=== PATIENT | male | born 1970 | race African-American/Black ===

== ENCOUNTER 2017-09-23 18:48 | Emergency (ER) | payer OTHER, BC ==
[2017-09-23 18:57] VITALS: BP 125/76; BMI 28.8
[2017-09-23] MEDS ORDERED: TORADOL 60 MG VIAL ONE (19:01)
[2017-09-23] MEDS ORDERED: TORADOL 60 MG VIAL IM ONE (19:01)
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
== END 2017-09-23 20:14 | disposition home or self-care (01) ==
LOC: ER 18:48
DX: S00.83XA Contusion of other part of head, initial encounter (principal); G44.311 Acute post-traumatic headache, intractable; G31.9 Degenerative disease of nervous system, unspecified; X58.XXXA Exposure to other specified factors, initial encounter
CPT/HCPCS: 70450; 70486; 96372; 99283; J1885

== ENCOUNTER 2019-07-27 08:01 | Inpatient (IN) ==
[2019-07-27 08:18] VITALS: BMI 30.1
[2019-07-27] MEDS ORDERED: ZOFRAN INJ 4 MG VIAL IVP ONE ×2 (08:20→15:54)
[2019-07-27] MEDS ORDERED: NS 1000 ML 1,000 ML IV ONE (08:20)
[2019-07-27] MEDS ORDERED: NS 1000 ML 1,000 ML ONE ×2 (08:21→16:19)
[2019-07-27] MEDS ORDERED: ZOFRAN INJ 4 MG VIAL ONE ×2 (08:21→16:02)
[2019-07-27 08:45] LABS: BASOPHILS % (AUTO) 0.6 % (0.2-1.0); EOSINOPHILS % (AUTO) 0.1 % (0.9-2.9); HEMATOCRIT 39.6 % (42.0-54.0); HEMOGLOBIN 12.7 g/dL (13.5-18.0); LYMPHOCYTES # (AUTO) 1.3 X10^3/uL (1.3-2.9); LYMPHOCYTES % (AUTO) 14.7 % (21.0-51.0); MEAN CORPUSCULAR VOLUME 84.2 fL (80.0-100.0); MEAN PLATELET VOLUME 8.3 fL (7.4-11.0); MONOCYTES # (AUTO) 0.6 x10^3/uL (0.3-0.8); MONOCYTES % (AUTO) 6.5 % (0.0-13.0); NEUTROPHILS # (AUTO) 6.7 x10^3/uL (2.2-4.8); NEUTROPHILS % (AUTO) 78.1 % (42.0-75.0); PLATELET COUNT 216 X10^3/uL (150.0-450.0); RED CELL DISTRIBUTION WIDTH 15.7 % (11.6-16.5); WHITE BLOOD COUNT 8.5 X10^3/uL (3.6-10.0)
[2019-07-27] MEDS ORDERED: TORADOL 30 MG VIAL ONE (08:47)
[2019-07-27] MEDS ORDERED: PEPCID 20 MG IV PREMIX* 20 MG/50 ML BAG IV ONE ×2 (08:47)
[2019-07-27] MEDS ORDERED: TORADOL 30 MG VIAL IVP ONE (08:47)
[2019-07-27 08:54] LABS: ALANINE AMINOTRANSFERASE 51 Units/L (12-78); ALBUMIN 4.5 g/dL (3.4-5.0); ALKALINE PHOSPHATASE 84 Units/L (46-116); AMYLASE 365 Units/L (25-115); ASPARTATE AMINO TRANSFERASE 44 Units/L (15-37); BLOOD UREA NITROGEN 12 mg/dL (7-18); CALCIUM 9.4 mg/dL (8.5-10.1); CARBON DIOXIDE 24.6 mmol/L (21-32); CHLORIDE 94 mmol/L (98-107); COR NA(FOR HYPERGLY) 137 mmol/L (136-145); CREATININE 1.45 mg/dL (0.70-1.30); SODIUM 133 mmol/L (136-145); TOTAL PROTEIN 8.5 g/dL (6.4-8.2); eGFR NON BLACK RACES 55 (>60)
[2019-07-27 09:04] LABS: LIPASE 5196 Units/L (73-393)
[2019-07-27] MEDS ORDERED: NORMODYNE TAB 100 MG PO ONE (09:19)
--- NOTE | 2019-07-27 09:25 | DR.N/VMALE ---
HPI Time Seen Time Seen by Provider: 07/27/19 09:18 Primary Care Physician Primary Care Physician: DR. CHESTER HPI Comment HPI Comment: PATIENT IS 49YR OLD MALE IN ER WITH A LUQ ABDOMINAL PAIN , NAUSEA AND VOMITING TIMES ONE. PAIN IS SHARP 8/10 RADIATING TO THE BACK. PAIN IS WORSE TODAY AND SIMILAR TO PAIN PATIENT HAVE WITTH PACREATITIS. NO FEVER OR DYSURIA. Complaints Chief Complaint Doctors Comments: ABDOMINAL PAIN TIMES ONE WITH NAUSEA AND VOMITING. Chief Complaint:: PT C/O LEFT UPPER QUAD PAIN , AND NV SINCE YESTERDAY PT STATES " I FEELS LIKE IT DID WHEN IN HAD PANCREATITIS " ..BR Self Treatment fo Chief Complaint: PT DENIES ANY RECENT TRAVELS OR CONTACT WITH ANYONE WITH COVID-19, PT C/O SOB, LUNGS CLEAR PT STATES " I THINK THE SOB IS FRO M MY BELLY PAIN ",BR PT STATES " I LIVE ALONE AND I HAVE BEEN SELF QUARATINE".BR Reviewed Nurses Notes Reviewed: Yes Source History Provided: Patient and EMS Mode of Arrival Mode of Arrival: Stretcher Timing Onset of Chief Complaint: 07/26/19 Context Onset: Spontaneous Recent: None Quality Quality: Food Particles Associated Signs and Symptoms Abdominal Pain Quality: Sharp Abdominal Pain Location: LUQ Symptoms: Abdominal Pain Other History Other History: HISTORY PANCREATITIS. PMH PMH Past Medical History: Yes Past Medical History: Diabetes and Hypertension Past Surgical History: No Surgical History: No History Family History History of Family Medical Conditions: Yes Family Medical History: Hypertension Social History Does patient currently use any type of tobacco product: No Have you used tobacco products in the last 12 months: No Type of Tobacco Use: None Does any household member use tobacco: No Alcohol Use: Heavy Do you use any recreational Drugs:: No Lives With: Family Lives Where: Home Travel Risk Coronavirus risk:travel/contact w/high risk person: No Has patient experienced Coronavirus symptoms: No Infectious screening In the last 2 months have you had wt loss of >10#?: NO Have you had fever, night sweats or hemotysis?: No Have you traveled outside the country in the last 6 months?: No Isolation: Standard ROS Review of Systems Constitutional: See HPI, Weakness and Fatigue Eyes: No Symptoms Reported and See HPI ENTM: No Symptoms Reported and See HPI Respiratoy: See HPI and Short of Breath; negative Moist Cough and Wheezing Cardiovascular: No Symptoms Reported and See HPI Gastrointestinal/Abdominal: See HPI, Abdominal Pain, Nausea and Vomiting Genitourinary: No Symptoms Reported and See HPI; negative Dysuria, Frequency and Hematuria Neurological: See HPI and Weakness; negative Headache and Dizziness Musculoskeletal: No Symptoms Reported and See HPI; negative Back Pain Integumentary: No Symptoms Reported and See HPI; negative Change in Color, Rash and Juandice Hematologic/Lymphatic: No Symptoms Reported and See HPI Endocrine: No Symptoms Reported and See HPI Psychiatric: No Symptoms Reported and See HPI All Other Systems: Reviewed and Negative PE Vital Signs Vitals: Temperature 96.9 F Pulse Rate 120 Respiratory Rate 20 Blood Pressure [Left Arm] 182/114 Blood Pressure 150/100 O2 Sat by Pulse Oximetry 100 General Limitations: No Limitations General Appearance: Alert and In No Apparent Distress Head Head Exam: Normal Inspection Eyes Eye exam: Normal Appearance, PERRL and EOMI; negative Scleral Icterus and Co njunctival Injection ENT ENT Exam: Normal Exam, Normal Oropharynx, Normal External Ear Exam and TM's Normal Bilaterally Neck Neck Exam: Normal Inspection and Trachea Midline; negative Tenderness and Lymphadenopathy Chest Chest Inspection: Normal Inspection Respiratory Respiratory Exam: Normal Lung Sounds Bilat; negative Accessory Muscle Use, Chest Wall Tenderness and Respiratory Distress Respiratory Exam: Bilateral: Clear to Auscultation Cardiovascular Cardiovascular Exam: Regular Rate, Normal Rhythm and Normal Heart Sounds; negative Systolic Murmur and Diastolic Murmur Abdominal Exam Abdominal Exam: Normal Inspection, Normal Bowel Sounds, Soft and Tenderness Abdominal Tenderness: LLQ and Moderate Rectal Rectal Exam: Deferred Exam: Male: Deferred Extremities Extremities Exam: Normal Inspection and Normal Capillary Refill; negative Tenderness, Edema and Calf Tenderness Back Back Exam: Normal Inspection; negative (R) CVA Tenderness and (L) CVA Tenderness Neurologic Neurological Exam: Alert, Oriented X3 and CN II-XII Intact; negative Motor Sensory Deficit Psychiatric Psychiatric Exam: Normal Affect and Normal Mood Skin Skin Exam: Warm, Dry, Intact and Normal Color MDM Differential Diagnosis Differential Diagnosis: Considerations may Include:: Bowel Obstruction, Cholecystitis, Gastritis, Gastroenteritis, Inflammatory BD, Pancreatitis, PUD, Urinary Tract Infection and Urolithiasis COURSE Treatment Treatment: SEE ORDERS Education/Counseling Education/Counseling: Patient Educated On: Diagnosis and Needs for Follow Up ROR Labs Reviewed Laboratory Results Reviewed?: Yes Result Diagrams: 07/29/19 05:36 07/29/19 05:36 Laboratory: WBC 8.5 X10^3/uL (3.6-10.0) 07/27/19 08:36 RBC 4.70 X10^6/uL (4.7-6.0) 07/27/19 08:36 Hgb 12.7 g/dL (13.5-18.0) L 07/27/19 08:36 Hct 39.6 % (42.0-54.0) L 07/27/19 08:36 MCV 84.2 fL (80.0-100.0) 07/27/19 08:36 MCH 27.0 pg (27.0-34.0) 07/27/19 08:36 MCHC 32.0 g/dL (33.0-35.0) L 07/27/19 08:36 RDW 15.7 % (11.6-16.5) 07/27/19 08:36 Plt Count 216 X10^3/uL (150.0-450.0) 07/27/19 08:36 MPV 8.3 fL (7.4-11.0) 07/27/19 08:36 Neut % (Auto) 78.1 % (42.0-75.0) H 07/27/19 08:36 Lymph % (Auto) 14.7 % (21.0-51.0) L 07/27/19 08:36 Monona % (Auto) 6.5 % (0.0-13.0) 07/27/19 08:36 Eos % (Auto) 0.1 % (0.9-2.9) L 07/27/19 08:36 Baso % (Auto) 0.6 % (0.2-1.0) 07/27/19 08:36 Neut # (Auto) 6.7 x10^3/uL (2.2-4.8) H 07/27/19 08:36 Lymph # (Auto) 1.3 X10^3/uL (1.3-2.9) 07/27/19 08:36 Monona # (Auto) 0.6 x10^3/uL (0.3-0.8) 07/27/19 08:36 Eos # (Auto) 0.0 x10^3/uL (0.0-0.2) 07/27/19 08:36 Baso # (Auto) 0.0 X10^3/uL (0.0-0.1) 07/27/19 08:36 Absolute Nucleated RBC 0.1 /100WBC 07/27/19 08:36 Sodium 133 mmol/L (136-145) L 07/27/19 08:36 Corrected Sodium 137 mmol/L (136-145) 07/27/19 08:36 Potassium 4.0 mmol/L (3.5-5.1) 07/27/19 08:36 Chloride 94 mmol/L (98-107) L 07/27/19 08:36 Carbon Dioxide 24.6 mmol/L (21-32) 07/27/19 08:36 BUN 12 mg/dL (7-18) 07/27/19 08:36 Creatinine 1.45 mg/dL (0.70-1.30) H 07/27/19 08:36 Est GFR (MDRD) Af Amer > 60 (>60) 07/27/19 08:36 Est GFR (MDRD) Non-Af 55 (>60) L 07/27/19 08:36 Glucose 248 mg/dL (65-99) H 07/27/19 08:36 Calcium 9.4 mg/dL (8.5-10.1) 07/27/19 08:36 Corrected Calcium TNP 07/27/19 08:36 Total Bilirubin 0.50 mg/dL (0.2-1.0) 07/27/19 08:36 AST 44 Units/L (15-37) H 07/27/19 08:36 ALT 51 Units/L (12-78) 07/27/19 08:36 Alkaline Phosphatase 84 Units/L (46-116) 07/27/19 08:36 Total Protein 8.5 g/dL (6.4-8.2) H 07/27/19 08:36 Albumin 4.5 g/dL (3.4-5.0) 07/27/19 08:36 Globulin 4.0 g/dL (2.5-4.5) 07/27/19 08:36 Albumin/Globulin Ratio 1.1 Ratio (1.1-2.1) 07/27/19 08:36 Amylase 365 Units/L (25-115) H 07/27/19 08:36 Lipase 5196 Units/L (73-393) H 07/27/19 08:36 XRAY XRAY Interpreted by: Radiologist (REPORT NOTED AND DISCUSSED WITH PATIENT.) Opioid Opioid Risk Tool Age (Nguyễn box if 16-45): No History of Preadolescent Sexual Abuse: No Total: 0 Total Score Risk Category: Low Risk Copyright: Rangel predicting aberrant behaviors Instructions Instructions: Acute Pancreatitis, [id number] Type 2 Diabetes Mellitus, Self Care, Adult, Chzj-[id number] Hypertension, [id number] Acute Pancreatitis Forms: Excuse From Work Precautions for COVID19 Patient Portal Social Distancing
--- NOTE | 2019-07-27 10:31 | CT ---
ABDOMEN/PELVIS WITH CONIndication: Upper abdominal pains, elevated pancreatic enzymesTechnique: Helical CT images of the abdomen and pelvis were obtained with IV contrast. Reformatted images in the coronal and sagittal planes were also generated for review.Comparison: NoneFindings: Lung bases are clear. No acute osseous abnormality.The liver, nondistended gallbladder, spleen, adrenals and kidneys are unremarkable. The pancreas is diffusely edematous with surrounding inflammatory stranding and small free fluid, compatible with acute pancreatitis. Calcifications in the region of the pancreatic head, compatible with sequela of chronic pancreatitis also noted. No current evidence of pancreatic necrosis or drainable peripancreatic fluid collection is identified. The main portal vein, splenic vein and SMV remain patent.There is moderate, likely reactive thickening of the duodenal C loop. The remainder of the GI tract is without obstruction or inflammation. The appendix is normal. The abdominal aorta is minimally calcified without aneurysm. Small fat containing umbilical hernia noted. The partially collapsed urinary bladder is grossly normal. Prostate is not enlarged. No free air or bulky lymphadenopathy is identified.Impression:Imaging findings compatible with uncomplicated acute interstitial pancreatitis as above.Electronically signed by: ROBE BUSH (Jul 27, 2019 10:29:27)
[2019-07-27] MEDS ORDERED: NS 500 ML IV 1,000 ML IV ONE (15:54)
[2019-07-27] MEDS ORDERED: ZOFRAN INJ 4 MG VIAL IVP PRN (16:04)
[2019-07-27] MEDS ORDERED: PROTONIX INJ 40 MG VIAL ONE (16:19)
[2019-07-27] MEDS ORDERED: DEMEROL INJ ONE (16:20)
[2019-07-27] MEDS: DEMEROL INJ IVP PRN ×2 (16:27→22:45)
[2019-07-27] MEDS: PROTONIX INJ 40 MG VIAL IVP SCH ×2 (16:28→20:50)
[2019-07-27] MEDS ORDERED: PROVENTIL NEB TX 0.083% 2.5MG/ 3ML NEB PRN (17:26)
[2019-07-27] MEDS ORDERED: ZESTRIL TAB 20 MG ONE (18:44)
[2019-07-27] MEDS: NORVASC TAB 10 MG PO SCH (18:49)
[2019-07-27] MEDS: ZESTRIL TAB 20 MG PO SCH (18:50)
[2019-07-27 18:52] LABS: BILIRUBIN,URINE NEGATIVE (NEGATIVE); BLOOD/HEMOGLOBIN,URINE 3+ (NEGATIVE); GLUCOSE, URINE NEGATIVE (NEGATIVE); KETONES,URINE 3+ (NEGATIVE); LEUKOCYTE ESTERASE ,URINE 1+ (NEGATIVE); NITRITES,URINE NEGATIVE (NEGATIVE); PROTEIN,URINE 3+ (NEGATIVE); UROBILINOGEN,URINE NORMAL (NORMAL)
[2019-07-27] MEDS: NS 1000 ML 1,000 ML IV SCH (19:00)
[2019-07-27 19:33] LABS: APPEARANCE,URINE CLEAR (CLEAR); BACTERIA,URINE NEGATIVE /HPF (NEGATIVE); COLOR,URINE DARK YELLOW (YELLOW); SQUAMOUS EPITHELIAL CELL,UR FEW /HPF (NEGATIVE)
[2019-07-27] MEDS ORDERED: LOPRESSOR TAB 50 MG ONE (20:28)
[2019-07-27] MEDS: AMBIEN PO PRN (20:49)
[2019-07-27] MEDS: LOPRESSOR TAB 50 MG PO SCH (20:52)
[2019-07-27] MEDS: HumuLIN R SUBCUT PRN (20:52)
[2019-07-28] MEDS: NS 1000 ML 1,000 ML IV SCH ×4 (04:23→23:55)
[2019-07-28 05:45] LABS: BASOPHILS % (AUTO) 0.3 % (0.2-1.0); EOSINOPHILS % (AUTO) 0.3 % (0.9-2.9); HEMATOCRIT 36.8 % (42.0-54.0); HEMOGLOBIN 11.9 g/dL (13.5-18.0); LYMPHOCYTES # (AUTO) 0.8 X10^3/uL (1.3-2.9); LYMPHOCYTES % (AUTO) 7.7 % (21.0-51.0); MEAN CORPUSCULAR HEMOGLOBIN 27.4 pg (27.0-34.0); MEAN CORPUSCULAR HGB CONC 32.4 g/dL (33.0-35.0); MEAN CORPUSCULAR VOLUME 84.6 fL (80.0-100.0); MEAN PLATELET VOLUME 8.4 fL (7.4-11.0); MONOCYTES # (AUTO) 1.1 x10^3/uL (0.3-0.8); MONOCYTES % (AUTO) 10.4 % (0.0-13.0); NEUTROPHILS # (AUTO) 8.9 x10^3/uL (2.2-4.8); NEUTROPHILS % (AUTO) 81.3 % (42.0-75.0); PLATELET COUNT 158 X10^3/uL (150.0-450.0); RED BLOOD COUNT 4.35 X10^6/uL (4.7-6.0); RED CELL DISTRIBUTION WIDTH 16.1 % (11.6-16.5)
[2019-07-28 06:04] LABS: ALANINE AMINOTRANSFERASE 34 Units/L (12-78); ALBUMIN 3.8 g/dL (3.4-5.0); ALKALINE PHOSPHATASE 64 Units/L (46-116); AMYLASE 498 Units/L (25-115); ASPARTATE AMINO TRANSFERASE 28 Units/L (15-37); BLOOD UREA NITROGEN 10 mg/dL (7-18); CALCIUM 8.3 mg/dL (8.5-10.1); CARBON DIOXIDE 27.5 mmol/L (21-32); CHLORIDE 100 mmol/L (98-107); COR NA(FOR HYPERGLY) 140 mmol/L (136-145); CREATININE 1.07 mg/dL (0.70-1.30); SODIUM 138 mmol/L (136-145); TOTAL PROTEIN 7.4 g/dL (6.4-8.2); eGFR NON BLACK RACES > 60 (>60)
[2019-07-28] MEDS: HumuLIN R SUBCUT PRN ×4 (06:13→21:06)
[2019-07-28] MEDS: DEMEROL INJ IVP PRN (06:13)
[2019-07-28] MEDS ORDERED: ZESTRIL TAB 20 MG ONE (08:48)
[2019-07-28] MEDS: PROTONIX INJ 40 MG VIAL IVP SCH ×2 (10:15→20:00)
[2019-07-28] MEDS: LOPRESSOR TAB 50 MG PO SCH ×2 (10:16→20:00)
[2019-07-28] MEDS: NORVASC TAB 10 MG PO SCH (10:16)
[2019-07-28] MEDS: ZESTRIL TAB 20 MG PO SCH (10:16)
--- NOTE | 2019-07-28 17:09 | RAD ---
HISTORYcoughSTUDYCHEST, PA/LAT ADULTCOMPARISONNoneFINDINGSThe trachea is midline. The cardiac silhouette is the upper limits of normal. Mild peribronchial thickening is noted. No definite evidence of focal consolidation is appreciated.IMPRESSIONMild peribronchial thickening without definite evidence of focal consolidation at this time.Electronically signed by: HAKEEM MARINA (Jul 28, 2019 17:07:54)
[2019-07-28] MEDS ORDERED: PROVENTIL NEB TX 0.083% 2.5MG/ 3ML NEB PRN (17:12)
[2019-07-28] MEDS ORDERED: LEVAQUIN PREMIX IV 750 MG 750 MG/150 ML BAG IV SCH (19:00)
[2019-07-28] MEDS: AMBIEN PO PRN (20:00)
[2019-07-28] MEDS: FORTAZ or TAZICEF VIAL INJ 1 G in NS 100 ML IV + SPIKE MINIBAG* 100 ML IV SCH (21:00)
--- NOTE | 2019-07-28 22:35 | DR.H&P ---
H&P - History & Physical for Day of: H&P Date: 07/28/19 - Chief Complaint Chief Complaint: ABDOMINAL PAIN, FEVER, SOB - History of Present Illness History of Present Illness: IS A 49 YEAR OLD PATIENT OF . HE PRESENTED TO THE ER WITH COMPLAINTS OF LUQ PAIN, AND NAUSEA/VOMITING. PATIENT REPORTS A PAST HISTORY OF PANCREATITIS AND REPORTS THAT THIS FEELS SIMILAR. HE ALSO REPORTS SHORTNESS OF BREATH. PT DENIES ANY RECENT TRAVELS OR CONTACT WITH ANYONE WITH COVID-19. PT STATES " I THINK THE SOB IS FROM MY BELLY PAIN. ON ARRIVAL TO THE ER, VITALS WERE 97.1-015-68-100%-125/88. LABS WERE OBTAINED. ABNORMAL LAB VALUES INCLUDE THE FOLLOWING: HGB 12.7, HCT 39.6, SODIUM 133, CHLORIDE 94, CREATININE 1.45, GLUCOSE 248, AST 44, TOTAL PROTEIN 8.5, AMYLASE 365, LIPASE 5196. URINALYSIS REVEALED: WBC 0-2, RBC 5-10, LEUKOCYTES 1+, BACTERIA NEGATIVE. BLOOD CULTURES WERE OBRTAINED. AN ABDOMEN/PELVIS CT WITHOUT CONTRAST WAS OBTAINED AND REVEALED: Imaging findings compatible with uncomplicated acute interstitial pancreatitis. HE WAS GIVEN A RESPIRATORY TX, ZOFRAN 4MG IV X 2 DOSE, TORADOL 30MG IV X 1, IV PEPCID, AND GIVEN 1500 ML NS BOLUS. HE WAS ADMITTED FOR FURTHER EVALUATION AND TREATMENT OF ACUTE PANCREATITIS. HE WAS STARTED ON NORMAL SALINE AT 125ML/HR, DEMEROL 25MG IV Q6H PRN, RAYMOND 4MG IV Q8H PRN, PROTONIX 40MG IV BID, AND HOME MEDICATIONS WERE RESUMED. OTHERWISE, WE PLAN TO FOLLOW UP WITH AM LABS AND CONTINUE TO MONITOR. - Past Medical History Past Medical History: Hypertension, Diabetes - Past Surgical History Surgical History: No History - Family History Family Medical History: Diabetes Mellitus, Hypertension - Social History Does patient currently use any type of tobacco product: Yes Have you used tobacco products in the last 12 months: Yes Type of Tobacco Use: Cigarettes How many years tobacco product used: 20 Does any household member use tobacco: No Alcohol Use: DAILY Drug Use: None - Medications Home Medications: penicillin G Allergy (Verified 07/27/19 08:12) CONTINUE taking the following medications albuterol sulfate 1 inh INHALATION PRN PRN 07/27/19 [History] amlodipine [Norvasc] 10 mg PO DAILY 07/27/19 [History] atorvastatin 20 mg PO HS 07/27/19 [History] ketorolac 10 mg PO BID 07/27/19 [History] lisinopril-hydrochlorothiazide 1 tab PO DAILY 07/27/19 [History] meclizine 25 mg PO PRN PRN 07/27/19 [History] metoprolol tartrate [Lopressor] 50 mg PO BID 07/27/19 [History] omeprazole magnesium [Prilosec] 20 mg PO DAILY 07/27/19 [History] pioglitazone 45 mg PO DAILY 07/27/19 [History] New Prescriptions ondansetron HCl [Zofran] 4 mg PO Q6H PRN #24 tab 07/27/19 [Rx] - Review of Systems Constitutional: Weakness Eyes: No Symptoms Reported ENT: No Symptoms Reported Respiratory: Shortness of Breath Cardiovascular: No Symptoms Reported Gastrointestinal: See HPI, Nausea, Vomiting, Abdominal Pain Genitourinary: No Symptoms Reported Musculoskeletal: No Symptoms Reported Skin: No Symptoms Reported Neurological: No Symptoms Reported - Physical Exam Vital Signs: Temperature 100.5 F Pulse Rate [Left Brachial] 92 Pulse Rate 93 Respiratory Rate 20 Blood Pressure [Left Arm] 118/87 Blood Pressure 150/100 O2 Sat by Pulse Oximetry 95 Oriented: Normal Eyes: Normal Ear: Normal Nose: Normal Throat: Normal Respiratory: Diminished Throughout Cardiovascular: Tachycardia : Normal Auscultation: Bowel Sounds: Normal Palpation: Normal Tenderness: Normal Skin: Normal Musculoskeletal: Normal Psychiatric: Normal Mood Description: Calm Affect: Normal Speech Pattern: Clear - Assessment/Plan (1) Acute pancreatitis Qualifiers: Pancreatitis type: unspecified pancreatitis type Acute pancreatitis complication: unspecified Qualified Code(s): K85.90 - Acute pancreatitis without necrosis or infection, unspecified Status: Acute Plan: ADMIT, NPO, NORMAL SALINE AT 125ML/HR, DEMEROL 25MG IV Q6H PRN, RAYMOND 4MG IV Q8H PRN, PROTONIX 40MG IV BID, AND HOME MEDICATIONS WERE RESUMED - Allergies Allergies/Adverse Reactions: Allergies Allergy/AdvReac Type Severity Reaction Status Date / Time penicillin G Allergy Verified 07/27/19 08:12
[2019-07-29] MEDS: NS 1000 ML 1,000 ML IV SCH ×2 (01:09→06:24)
[2019-07-29] MEDS: FORTAZ or TAZICEF VIAL INJ 1 G in NS 100 ML IV + SPIKE MINIBAG* 100 ML IV SCH (06:14)
[2019-07-29 06:18] LABS: BASOPHILS % (AUTO) 0.2 % (0.2-1.0); EOSINOPHILS % (AUTO) 0.1 % (0.9-2.9); HEMATOCRIT 35.2 % (42.0-54.0); HEMOGLOBIN 11.3 g/dL (13.5-18.0); LYMPHOCYTES # (AUTO) 1.2 X10^3/uL (1.3-2.9); LYMPHOCYTES % (AUTO) 15.7 % (21.0-51.0); MEAN CORPUSCULAR HEMOGLOBIN 27.2 pg (27.0-34.0); MEAN CORPUSCULAR HGB CONC 32.1 g/dL (33.0-35.0); MEAN CORPUSCULAR VOLUME 84.5 fL (80.0-100.0); MEAN PLATELET VOLUME 8.6 fL (7.4-11.0); NEUTROPHILS # (AUTO) 5.4 x10^3/uL (2.2-4.8); PLATELET COUNT 137 X10^3/uL (150.0-450.0); RED BLOOD COUNT 4.16 X10^6/uL (4.7-6.0); RED CELL DISTRIBUTION WIDTH 16.5 % (11.6-16.5); WHITE BLOOD COUNT 7.7 X10^3/uL (3.6-10.0)
[2019-07-29 06:21] LABS: ALANINE AMINOTRANSFERASE 27 Units/L (12-78); ALBUMIN 3.2 g/dL (3.4-5.0); ALKALINE PHOSPHATASE 53 Units/L (46-116); AMYLASE 180 Units/L (25-115); ASPARTATE AMINO TRANSFERASE 27 Units/L (15-37); BLOOD UREA NITROGEN 10 mg/dL (7-18); CALCIUM 7.8 mg/dL (8.5-10.1); CARBON DIOXIDE 25.4 mmol/L (21-32); CHLORIDE 100 mmol/L (98-107); COR CA(FOR HYPOALB) 8.4 mg/dL (8.5-10.1); COR NA(FOR HYPERGLY) 139 mmol/L (136-145); LIPASE 746 Units/L (73-393); SODIUM 138 mmol/L (136-145); TOTAL PROTEIN 6.9 g/dL (6.4-8.2); eGFR NON BLACK RACES > 60 (>60)
--- NOTE | 2019-07-29 06:54 | RAD ---
HISTORYShortness of breath, productive coughSTUDYCHEST, PA/LAT [id number]/29/2020FINDINGSThe heart is upper limits normal in size. No congestive heart failure is noted. The lungs are free of acute infiltrates. No pleural effusions are identified. There is perihilar subsegmental atelectasis on the right and on the left, unchanged. No pleural effusions are identified. Bony thorax is unremarkable.IMPRESSIONPerihilar subsegmental atelectasis unchangedElectronically signed by: MILY JACOBSON (Jul 29, 2019 06:53:28)
[2019-07-29] MEDS ORDERED: ZESTRIL TAB 20 MG ONE (08:08)
[2019-07-29] MEDS: LOPRESSOR TAB 50 MG PO SCH (08:28)
[2019-07-29] MEDS: PROTONIX INJ 40 MG VIAL IVP SCH (08:29)
[2019-07-29] MEDS: ZESTRIL TAB 20 MG PO SCH (08:29)
[2019-07-29] MEDS: NORVASC TAB 10 MG PO SCH (08:30)
[2019-07-29] MEDS ORDERED: POTASSIUM CHL 60 MEQ/NS 0.45% 500 ML IV PRN (08:37)
[2019-07-29] MEDS ORDERED: MAGNESIUM SULFATE 1 GRAM/100 mL PREMIX 1 GM/100 ML BAG IV PRN (08:37)
[2019-07-29] MEDS ORDERED: K-RIDER 10 MEQ/NS 100 ML 10 MEQ/100 ML BAG IV PRN (08:37)
[2019-07-29] MEDS ORDERED: K-DUR TAB 20 MEQ PO PRN (08:37)
[2019-07-29] MEDS ORDERED: POTASSIUM CHL 40 MEQ/NS 0.45% 500 ML IV PRN (08:37)
[2019-07-29] MEDS ORDERED: POTASSIUM CHLORIDE LIQ 20 MEQ UDC PO PRN (08:37)
[2019-07-29] MEDS ORDERED: MICRO K EXTEN CAP 10 MEQ PO PRN (08:37)
[2019-07-29] MEDS ORDERED: KLOR-CON PO PRN (08:37)
[2019-07-29] MEDS ORDERED: MAGNESIUM SULFATE IV NR ×2 (09:00)
[2019-07-29] MEDS ORDERED: DEXTROSE IV NR ×2 (09:00)
[2019-07-29 12:41] VITALS: BP 126/67
== END 2019-07-29 14:25 | disposition home or self-care (01) | DRG 440 ==
LOC: ER 08:01 → MED/SURG 16:00
PROVIDERS: ADMIT Internal Medicine; ATTEND Obstetrics & Gynecology Obstetrics
DX: R50.9 Fever, unspecified; E11.65 Type 2 diabetes mellitus with hyperglycemia; R06.02 Shortness of breath; K85.80 Other acute pancreatitis without necrosis or infection; R05 Cough; R10.84 Generalized abdominal pain; I10 Essential (primary) hypertension; Z79.899 Other long term (current) drug therapy
CPT/HCPCS: 36415; 71020; 71046; 74177; 80053; 81001; 82150; 83690; 83735; 85025; 87040; 87070; 87205; 94640; 94669; 96365; 96374; 96375; 99283; 99284; A4216; A4222; C9113; J0713; J1815; J1885; J1956; J2175; J2405; J3475; J7030; J7040; J7050; J7060; J7613; S0028